=== PATIENT | male | born 1995 | race Caucasian/White ===

== ENCOUNTER 2017-10-08 19:03 | Emergency (ER) | payer OTHER ==
[~2017-10-08] VITALS: Ht 175.3 cm; Wt 68.0 kg
[~2017-10-08 19:03] MED LIST: FLUT1DIS IH; LEVA15HF5 IH
[2017-10-08 19:20] VITALS: BP_SYST 140
[2017-10-08] MEDS ORDERED: IBUPROFEN 800 MG TABLET PO ONE (20:15)
[2017-10-08 20:45] VITALS: BP_SYST 132
== END 2017-10-08 20:45 | disposition home or self-care (01) ==
LOC: SED 19:03
DX: S60.042A Contusion of left ring finger without damage to nail, initial encounter (principal); R03.0 Elevated blood-pressure reading, without diagnosis of hypertension; J45.909 Unspecified asthma, uncomplicated; W23.0XXA Caught, crushed, jammed, or pinched between moving objects, initial encounter; Y93.89 Activity, other specified; Y92.89 Other specified places as the place of occurrence of the external cause; Y99.8 Other external cause status
CPT/HCPCS: 99284

== ENCOUNTER 2017-11-27 13:43 | Emergency (ER) | payer OTHER ==
[~2017-11-27] VITALS: Ht 175.3 cm; Wt 68.0 kg
[2017-11-27 14:06] VITALS: BP_SYST 121
[2017-11-27] MEDS ORDERED: IBUPROFEN 800 MG TABLET PO ONE (16:00)
[2017-11-27 16:30] VITALS: BP_SYST 108
== END 2017-11-27 16:30 | disposition home or self-care (01) ==
LOC: SED 13:43
DX: G89.29 Other chronic pain (principal); M25.562 Pain in left knee; R03.0 Elevated blood-pressure reading, without diagnosis of hypertension; J45.909 Unspecified asthma, uncomplicated; Z79.899 Other long term (current) drug therapy
CPT/HCPCS: 73564; 99284

== ENCOUNTER 2018-02-05 08:35 | Emergency (ER) | payer OTHER ==
[~2018-02-05] VITALS: Ht 175.3 cm; Wt 63.5 kg
[2018-02-05 08:35] VITALS: BP_SYST 133
[2018-02-05] MEDS ORDERED: ALBUTEROL SULFATE 0.083% 2.5 MG/3 ML VIAL.NEB IH ONE (08:45)
[2018-02-05] MEDS ORDERED: PREDNISONE 20 MG TABLET PO ONE (08:45)
[2018-02-05] MEDS ORDERED: IPRATROPIUM BROM 0.5 MG/2.5 ML VIAL.NEB (ATROVENT) IH ONE (08:45)
[2018-02-05 10:41] VITALS: BP_SYST 142
== END 2018-02-05 10:41 ==
LOC: SED 08:35
DX: J45.901 Unspecified asthma with (acute) exacerbation (principal)
CPT/HCPCS: 94640; 99283; J7512; J7613

== ENCOUNTER 2019-12-12 19:13 | Emergency (ER) | payer OTHER ==
[~2019-12-12] VITALS: Ht 175.3 cm; Wt 72.6 kg
[2019-12-12 19:35] VITALS: BP_SYST 139
--- NOTE | 2019-12-12 19:35 | NUR ---
PT WAITING IN ER LOBBY NO ER BEDS AVAILABLE.
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
--- NOTE | 2019-12-12 20:17 | NUR ---
Pt did not want to stay. Patient left without being seen. No treatment provided. ER MD aware
== END 2019-12-12 20:17 | disposition left against medical advice (07) ==
LOC: SED 19:13
DX: J34.9 Unspecified disorder of nose and nasal sinuses (principal); Z53.21 Procedure and treatment not carried out due to patient leaving prior to being seen by health care provider

== ENCOUNTER 2020-03-10 09:22 | Emergency (ER) | payer OTHER ==
[~2020-03-10] VITALS: Ht 175.3 cm; Wt 63.5 kg
[2020-03-10 09:29] VITALS: BP_SYST 125
[2020-03-10] MEDS: KETOROLAC TROMETHAMINE 60 MG/2 ML VIAL IM ONE ×2 (09:56→09:59)
[2020-03-10 11:12] VITALS: BP_SYST 126
== END 2020-03-10 11:11 | disposition home or self-care (01) ==
LOC: SED 09:22
DX: R07.89 Other chest pain (principal); J45.909 Unspecified asthma, uncomplicated; Z79.899 Other long term (current) drug therapy
CPT/HCPCS: 71045; 96372; 99283; J1885; 93005